=== PATIENT | male | born 1950 | race African-American/Black ===

== ENCOUNTER 2020-06-01 13:16 | Outpatient (CLI) | payer MEDICARE ==
--- NOTE | 2020-06-01 15:45 | Consultation ---
DATE OF CONSULTATION: 06/01/2020 CHIEF COMPLAINT: Referral for screening colonoscopy. PAST MEDICAL HISTORY: 1. Hypertension. 2. Coronary artery disease status post cardiac stent placement in October 2019. MEDICATIONS: Plavix, aspirin, atorvastatin. ALLERGIES: No known drug allergies. FAMILY HISTORY: Noncontributory. SOCIAL HISTORY: The patient denies any tobacco, alcohol, or drug abuse. He is still working as a . REVIEW OF SYSTEMS: Negative. PHYSICAL EXAMINATION: VITAL SIGNS: Temperature 97.5, blood pressure 120/83, pulse is 80, respirations 20. Height is 6 feet 2 inches, weight is 187. HEENT: Normocephalic and atraumatic. Sclerae anicteric. NECK: Supple. No evidence of obvious lymphadenopathy. CARDIOVASCULAR: Regular rate and rhythm. Plus S1 and S2. LUNGS: Clear to auscultation bilaterally. ABDOMEN: Positive bowel sounds. Soft and nontender. No rebound. No guarding. No peritoneal sign. EXTREMITIES: No cyanosis. No clubbing. No edema. ASSESSMENT AND PLAN: The patient is a 70-year-old male with need for screening colonoscopy. I spoke with mowing machine operator, Dr. Goddard. Okay to stop the Plavix for 3 days given it is 6 months after the stent, so we are going to go ahead and schedule the patient for colonoscopy. The patient was instructed about stopping the Plavix for three days and resume after the colonoscopy. We will schedule him for hopefully next week. I want to thank, Dr. Horn, for this kind referral. Marco Mesa M.D. DR: Annabella JOB#: [id number] CC: Jese Horn M.D.; Fax#: [phone]
== END 2020-06-01 15:16 | disposition home or self-care (01) ==
LOC: PAN 13:16
DX: I11.9 Hypertensive heart disease without heart failure (principal); I25.10 Atherosclerotic heart disease of native coronary artery without angina pectoris; Z95.5 Presence of coronary angioplasty implant and graft; Z79.82 Long term (current) use of aspirin; Z79.02 Long term (current) use of antithrombotics/antiplatelets
CPT/HCPCS: G0463